=== PATIENT | female | born 1965 | race Caucasian/White ===

== ENCOUNTER 2016-07-11 13:33 | Emergency (ER) | payer BC ==
[~2016-07-11 13:33] MED LIST: AMBIEN10 MG PO; DOXEPIN HCL10 MG PO; RESTORIL15 MG PO; TOPAMAX100 MG PO; VALIUM10 MG PO; VISTARIL50 MG PO; ZOLOFT100 MG PO
== END 2016-07-11 16:21 | disposition home or self-care (01) ==
LOC: D.ER 13:33
DX: G43.909 Migraine, unspecified, not intractable, without status migrainosus (principal); M06.9 Rheumatoid arthritis, unspecified; I10 Essential (primary) hypertension

== ENCOUNTER 2016-11-16 17:45 | Emergency (ER) | payer SELFPAY | END 2016-11-16 23:19 | disposition home or self-care (01) | LOC: D.ER 17:45 | DX: G43.909 Migraine, unspecified, not intractable, without status migrainosus (principal); I10 Essential (primary) hypertension ==

== ENCOUNTER 2016-12-04 11:23 | Emergency (ER) | payer SELFPAY | END 2016-12-04 13:17 | disposition home or self-care (01) | LOC: D.ER 11:23 | DX: G43.909 Migraine, unspecified, not intractable, without status migrainosus (principal); E86.0 Dehydration; I10 Essential (primary) hypertension; M06.9 Rheumatoid arthritis, unspecified ==

== ENCOUNTER 2017-01-21 08:09 | Emergency (ER) | payer SELFPAY | END 2017-01-21 11:10 | disposition home or self-care (01) | LOC: D.ER 08:09 | DX: G43.909 Migraine, unspecified, not intractable, without status migrainosus (principal); I10 Essential (primary) hypertension ==

== ENCOUNTER 2017-02-14 09:34 | Emergency (ER) | payer SELFPAY | END 2017-02-14 10:43 | disposition home or self-care (01) | LOC: D.ER 09:34 | DX: G47.00 Insomnia, unspecified (principal); Z76.0 Encounter for issue of repeat prescription; I10 Essential (primary) hypertension ==

== ENCOUNTER 2017-02-26 14:30 | Emergency (ER) | payer SELFPAY | END 2017-02-26 18:00 | disposition home or self-care (01) | LOC: D.ER 14:30 | DX: G43.909 Migraine, unspecified, not intractable, without status migrainosus (principal); I10 Essential (primary) hypertension; G47.00 Insomnia, unspecified ==

== ENCOUNTER 2017-03-13 15:35 | Emergency (ER) | payer SELFPAY | END 2017-03-13 17:42 | disposition home or self-care (01) | LOC: D.ER 15:35 | DX: R51 Headache (principal); I10 Essential (primary) hypertension ==

== ENCOUNTER 2017-05-03 16:39 | Emergency (ER) | payer MEDICAID | END 2017-05-03 17:32 | disposition home or self-care (01) | LOC: D.ER 16:39 | DX: Z76.0 Encounter for issue of repeat prescription (principal); I10 Essential (primary) hypertension ==

== ENCOUNTER 2017-05-04 14:56 | Emergency (ER) | payer MEDICAID ==
[2017-05-04 15:53] LABS: BASOPHILS 0.7 % (0-2); EOSINOPHILS 1.6 % (0-7); HEMATOCRIT 43.3 % (36.0-48.0); HEMOGLOBIN 14.2 g/dL (12-16); IMMATURE GRANULOCYTES 0.2 % (0-5); LYMPHOCYTES 25.2 % (15-50); MCH 30.9 pg (26.0-34.0); MCHC 32.8 g/dL (31.0-37.0); MCV 94.3 fL (80.0-100.0); MEAN PLATELET VOLUME 10.7 fL (7.4-10.4); MONOCYTES 10.3 % (2-11); RBC 4.59 10x6/uL (4.00-5.40); RDW 12.8 % (11.5-14.5); WBC 5.8 10x3/uL (4.8-10.8)
[2017-05-04 15:56] LABS: PLATELET COUNT 239 10x3/uL (130-400)
[2017-05-04 16:10] LABS: APPEARANCE HAZY (CLEAR); BILIRUBIN NEGATIVE (NEGATIVE); COLOR YELLOW (YELLOW); GLUCOSE NEGATIVE (NEGATIVE); KETONE NEGATIVE (NEGATIVE); NITRITE NEGATIVE (NEGATIVE); PROTEIN NEGATIVE (NEGATIVE); UROBILINOGEN NORMAL (NORMAL)
[2017-05-04 16:12] LABS: UDS - AMPHET NEGATIVE QUAL (NEGATIVE); UDS - BARB NEGATIVE QUAL (NEGATIVE); UDS - BENZO NEGATIVE QUAL (NEGATIVE); UDS - COCAINE NEGATIVE QUAL (NEGATIVE); UDS - OPIATE NEGATIVE QUAL (NEGATIVE); UDS - PCP NEGATIVE QUAL (NEGATIVE); UDS - THC NEGATIVE QUAL (NEGATIVE)
[2017-05-04 16:13] LABS: ALBUMIN 3.6 g/dL (3.4-5.0); ANION GAP 16.9 mmol/L (8-16); BILIRUBIN - TOTAL 0.12 mg/dL (0.2-1.3); CALCIUM 8.6 mg/dL (8.5-10.1); CARBON DIOXIDE 23.2 mmol/L (21.0-32.0); CREATININE - SERUM 0.9 mg/dL (0.6-1.3); POTASSIUM - SERUM 4.1 mmol/L (3.5-5.1); PROTEIN - SERUM 6.7 g/dL (6.4-8.2)
== END 2017-05-04 18:42 | disposition home or self-care (01) ==
LOC: D.ER 14:56
PROVIDERS: Emergency Medicine; Nurse Practitioner Family
DX: R41.82 Altered mental status, unspecified (principal); T65.91XA Toxic effect of unspecified substance, accidental (unintentional), initial encounter; Y92.029 Unspecified place in mobile home as the place of occurrence of the external cause; I10 Essential (primary) hypertension

== ENCOUNTER → 2017-07-29 16:34 | Outpatient (CLI) | payer MEDICAID ==
[2017-07-29 17:08] LABS: BASOPHILS 0.5 % (0-2); EOSINOPHILS 2.7 % (0-7); HEMOGLOBIN 12.3 g/dL (12-16); IMMATURE GRANULOCYTES 0.1 % (0-5); MCH 29.7 pg (26.0-34.0); MCHC 33.2 g/dL (31.0-37.0); MCV 89.4 fL (80.0-100.0); MEAN PLATELET VOLUME 9.4 fL (7.4-10.4); MONOCYTES 7.9 % (2-11); NEUTROPHILS 67.8 % (40-80); RBC 4.14 10x6/uL (4.00-5.40); RDW 14.2 % (11.5-14.5); WBC 8.3 10x3/uL (4.8-10.8)
[2017-07-29 17:13] LABS: PLATELET COUNT 349 10x3/uL (130-400)
[2017-07-29 17:22] LABS: ANION GAP 15.4 mmol/L (8-16); CALCIUM 8.9 mg/dL (8.5-10.1); CARBON DIOXIDE 21.1 mmol/L (21.0-32.0); CREATININE - SERUM 0.9 mg/dL (0.6-1.3); POTASSIUM - SERUM 4.5 mmol/L (3.5-5.1); T4 THYROXIN - FREE 0.86 ng/dL (0.76-1.46); THYROID STIMULATING HORMONE 1.26 uIU/mL (0.36-3.74)
== END | disposition home or self-care (01) ==
LOC: D.LAB 16:34
PROVIDERS: Psychiatry & Neurology Psychiatry
DX: Z51.81 Encounter for therapeutic drug level monitoring (principal); Z79.899 Other long term (current) drug therapy

== ENCOUNTER 2017-10-16 14:48 | Emergency (ER) | payer MEDICAID | END 2017-10-16 16:50 | disposition home or self-care (01) | LOC: D.ER 14:48 | DX: L02.413 Cutaneous abscess of right upper limb (principal); I10 Essential (primary) hypertension ==

== ENCOUNTER 2019-09-20 01:03 | Emergency (ER) | payer MEDICAID ==
[~2019-09-20] VITALS: Ht 172.7 cm; Wt 78.2 kg
[2019-09-20 01:06] VITALS: Ht 172.7 cm; Wt 78.2 kg
[2019-09-20] MEDS ORDERED: PROPRANOLOL HCL20 MG PO (01:08)
[2019-09-20] MEDS ORDERED: BENADRYL50 MG PO (01:09)
[2019-09-20] MEDS ORDERED: IBUPROFEN800 MG PO (01:11)
[2019-09-20] MEDS ORDERED: HYDROCHLOROTH12.5 M1 PO (01:14)
[2019-09-20 01:34] LABS: BASOPHILS 0.3 % (0-2); EOSINOPHILS 0.3 % (0-7); HEMATOCRIT 36.5 % (36.0-48.0); HEMOGLOBIN 11.7 g/dL (12-16); IMMATURE GRANULOCYTES 0.2 % (0-5); LYMPHOCYTES 13.6 % (15-50); MCH 26.4 pg (26.0-34.0); MCHC 32.1 g/dL (31.0-37.0); MCV 82.4 fL (80.0-100.0); MEAN PLATELET VOLUME 9.3 fL (7.4-10.4); MONOCYTES 8.2 % (2-11); NEUTROPHILS 77.4 % (40-80); PLATELET COUNT 338 10x3/uL (130-400); RBC 4.43 10x6/uL (4.00-5.40); RDW 13.8 % (11.5-14.5); WBC 14.2 10x3/uL (4.8-10.8)
[2019-09-20 01:52] LABS: UDS - AMPHET NEGATIVE QUAL (NEGATIVE); UDS - BARB NEGATIVE QUAL (NEGATIVE); UDS - BENZO NEGATIVE QUAL (NEGATIVE); UDS - COCAINE NEGATIVE QUAL (NEGATIVE); UDS - OPIATE NEGATIVE QUAL (NEGATIVE); UDS - PCP NEGATIVE QUAL (NEGATIVE); UDS - THC NEGATIVE QUAL (NEGATIVE)
[2019-09-20 01:54] LABS: BILIRUBIN NEGATIVE (NEGATIVE); GLUCOSE 1000 mg/dL (NEGATIVE); KETONE NEGATIVE (NEGATIVE); NITRITE NEGATIVE (NEGATIVE); UROBILINOGEN NORMAL (NORMAL)
[2019-09-20 01:57] LABS: ALBUMIN 4.2 g/dL (3.4-5.0); BILIRUBIN - TOTAL 0.64 mg/dL (0.2-1.3); CALCIUM 8.8 mg/dL (8.5-10.1); CARBON DIOXIDE 18.4 mmol/L (21.0-32.0); CREATININE - SERUM 1.4 mg/dL (0.6-1.3); MAGNESIUM - SERUM 2.1 mg/dL (1.8-2.4); PROTEIN - SERUM 8.1 g/dL (6.4-8.2)
[2019-09-20 01:59] LABS: ANION GAP 19.5 mmol/L (8-16); POTASSIUM - SERUM 2.9 mmol/L (3.5-5.1)
--- NOTE | 2019-09-20 03:07 | NUR ---
DR CLAYTON CALLED AND INFORMED OF PATIENT'S BEHAVIOR AND ASSESSMENT FINDINGS. PT IS A MODERATE RISK FOR SELF HARM PER DR CLAYTON. NO OTHER ORDERS RECEIVED. INSTRUCTED TO GIVE RESOURCE SHEET AT TIME OF DISCHARGE. INFORMATION COVERED AND SHE VERBALIZED UNDERSTANDING.
[2019-09-20] MEDS ORDERED: KEFLEX500 MG PO (03:34)
[2019-09-20 04:23] VITALS: BP 106/89
== END 2019-09-20 04:23 | disposition home or self-care (01) ==
LOC: D.ER 01:03
PROVIDERS: Emergency Medicine
DX: R44.1 Visual hallucinations (principal); R44.2 Other hallucinations; J02.9 Acute pharyngitis, unspecified; T43.595A Adverse effect of other antipsychotics and neuroleptics, initial encounter; Y92.89 Other specified places as the place of occurrence of the external cause; I10 Essential (primary) hypertension; R19.7 Diarrhea, unspecified; R51 Headache